=== PATIENT | male | born 1965 | race Caucasian/White ===

== ENCOUNTER → 2021-10-21 13:46 | Outpatient (BNVA) | payer MEDICAID, SELFPAY | PROVIDERS: Family Provider Family Medicine; Visit Provider Orthopaedic Surgery | DX: M25.531 Pain in right wrist (principal) | CPT/HCPCS: 73110 ==

== ENCOUNTER 2021-12-18 16:18 | Outpatient (CLI) | payer MEDICAID, SELFPAY ==
--- NOTE | 2021-12-18 16:27 | MR_ITS ---
WS: [id number] MRI RIGHT WRIST without CONTRAST. COMPARISON: Radiographs 10/21/2021 Multiplanar, multisequence imaging is performed without contrast. Marker is placed along the dorsal surface of the hand at the area of pain and swelling. There is a small amount of increased fluid within the extensor digitorum tendon sheath. This is predo minantly within compartment 4. The tendons themselves appear normal size. No tear or splitting is coleen ntified. No marrow edema or fracture. There are a few small subchondral cysts noted in the volar surf moe of the distal scaphoid. No fracture. There is no marrow edema. Distal radial ulnar joint is narendra l. There is a very tiny amount of fluid at the distal radial ulnar joint. Increased signal within the triangular fibrocartilage. Cannot confirm tear. There is no muscle atrophy. No displacement of the bones or tendons or ligaments. Scapholunate ligame nt is negative. There is also small amount of increased fluid distal to the radial styloid extending to the scaphoid. There is slight irregularity involving the adjacent distal scaphoid which may be due to an erosion o r prior fracture. MR/MR wrist RT wo con* [id number] IMPRESSION: 1. Small amount of increased fluid in the extensor digitorum tendon sheath (co mpartment 4) most consistent with mild tenosynovitis. 2. There is increased signal in the triangular fibrocartilage and a small amou nt of fluid in the distal radial ulnar joint. Small tear not excluded in the TF CC. 3. Subchondral cystic changes in the inferior most scaphoid. 4. Increased fluid distal to the radial styloid adjacent to the scaphoid. Smal l erosion versus osteophyte or remote avulsion from the distal scaphoid. This m ay be degenerative. No fracture was identified on the radiographs from 1.
== END 2021-12-18 16:19 | disposition home or self-care (01) ==
LOC: RAD 16:24
PROVIDERS: PCP Family Medicine; Visit Provider Orthopaedic Surgery
DX: M25.531 Pain in right wrist (principal)
CPT/HCPCS: 73221

== ENCOUNTER 2021-12-30 11:19 | Outpatient (CLI) | payer MEDICAID, SELFPAY | END 2021-12-30 11:20 | disposition home or self-care (01) | LOC: SPT 11:19 | PROVIDERS: PCP Family Medicine; Visit Provider Orthopaedic Surgery | DX: Z46.89 Encounter for fitting and adjustment of other specified devices (principal); M79.641 Pain in right hand; M25.531 Pain in right wrist | CPT/HCPCS: 97760; L3908 ==

== ENCOUNTER → 2022-03-16 15:44 | Outpatient (BNVA) | payer MEDICAID, SELFPAY | PROVIDERS: PCP Family Medicine; Referring Provider Orthopaedic Surgery; Visit Provider Specialist | DX: M79.641 Pain in right hand (principal); F17.200 Nicotine dependence, unspecified, uncomplicated | CPT/HCPCS: 95907 ==